=== PATIENT | male | born 1980 ===

== ENCOUNTER 2017-02-23 02:27 | Emergency (ER) | payer SELFPAY ==
[2017-02-23] MEDS ORDERED: Hydrocodone/Acetaminophen 5 mg /300 mg Tab PO STA (03:11)
[2017-02-23] MEDS ORDERED: Acetaminophen/Codeine elixir 120-12mg/5ml PO STA (03:13)
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
[2017-02-23] MEDS ORDERED: Acetaminophen-Codeine 300/30 mg Tab PO STA (03:42)
[2017-02-23] MEDS ORDERED: Acetaminophen-Codeine 300/30 mg Tab PO ONE (03:47)
--- NOTE | 2017-02-23 03:53 | CT ---
EXAM: CT Head Without Intravenous Contrast CLINICAL HISTORY: 36 years old, male; Pain and injury or trauma; Fall; Initial encounter; Puncture wound and swelling (edema); Without residual foreign body; Eye and face and forehead; Bilateral; Headache; Additional info: R/O bleed TECHNIQUE: Axial computed tomography images of the head/brain without intravenous contrast. All CT scans at this facility use one or more dose reduction techniques, viz.: automated exposure control; ma/kV adjustment per patient size (including targeted exams where dose is matched to indication; i.e. head); or iterative reconstruction technique. Coronal and sagittal reformatted images were created and reviewed. COMPARISON: No relevant prior studies available. FINDINGS: Brain: No intracranial hemorrhage. No mass. No edema. Ventricles: No hydrocephalus. Bones/joints: No calvarial fracture. Mastoid air cells: No mastoid effusion. IMPRESSION: 1. No intracranial hemorrhage. 2. See facial bone CT report for additional details.
--- NOTE | 2017-02-23 03:57 | CT ---
EXAM: CT Cervical Spine Without Intravenous Contrast CLINICAL HISTORY: 36 years old, male; Pain and injury or trauma; Fall; Initial encounter; Swelling; Neck pain TECHNIQUE: Axial computed tomography images of the cervical spine without intravenous contrast. All CT scans at this facility use one or more dose reduction techniques, viz.: automated exposure control; ma/kV adjustment per patient size (including targeted exams where dose is matched to indication; i.e. head); or iterative reconstruction technique. Coronal and sagittal reformatted images were created and reviewed. COMPARISON: No relevant prior studies available. FINDINGS: Vertebrae: No acute fracture. Early facet osteoarthrosis. Discs/spinal canal/neural foramina: Early mild degenerative degenerative disc disease throughout cervical spine. No significant spinal stenosis. Soft tissues: Unremarkable. Lung apices: Mild mosaic pattern of lung parenchyma, nonspecific. IMPRESSION: 1. No fracture. 2. Incidental/non-acute findings are described above.
--- NOTE | 2017-02-23 04:00 | CT ---
EXAM: CT Maxillofacial Without Intravenous Contrast CLINICAL HISTORY: 36 years old, male; Pain and injury or trauma; Fall; Initial encounter; Swelling; Cheek bone and eyelid and forehead; Bilateral; Uppeupper rightr right; Face pain and jaw pain and nose pain TECHNIQUE: Axial computed tomography images of the face without intravenous contrast. All CT scans at this facility use one or more dose reduction techniques, viz.: automated exposure control; ma/kV adjustment per patient size (including targeted exams where dose is matched to indication; i.e. head); or iterative reconstruction technique. Coronal and sagittal reformatted images were created and reviewed. COMPARISON: No relevant prior studies available. FINDINGS: Bones/joints: No acute fracture. Soft tissues: Facial soft tissue swelling, LEFT greater than RIGHT. Air along LEFT facial soft tissue swelling. Orbits: Unremarkable as visualized. Sinuses: Scattered minimal to mild mucosal thickening. No air-fluid levels. IMPRESSION: 1. No fracture. 2. Incidental/non-acute findings are described above.
[2017-02-23 04:25] VITALS: BP 124/83; PULSE 94; RESP 20; TEMP 98.4
[2017-02-23 04:54] VITALS: O2SAT 97
== END 2017-02-23 04:25 | disposition home or self-care (01) ==
LOC: C.ER 02:27
DX: S00.83XA Contusion of other part of head, initial encounter (principal); Y04.0XXA Assault by unarmed brawl or fight, initial encounter

== ENCOUNTER 2017-02-25 12:18 | Emergency (ER) | payer SELFPAY ==
[2017-02-25 12:24] VITALS: TEMP 97.9; O2SAT 98
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
[2017-02-25 12:59] VITALS: BP 120/70; PULSE 72; RESP 20
== END 2017-02-25 13:06 | disposition home or self-care (01) ==
LOC: C.ER 12:18
DX: S00.53 Contusion of lip and oral cavity (principal); Y09 Assault by unspecified means

== ENCOUNTER 2017-04-11 14:02 | Emergency (ER) | payer OTHER, SELFPAY ==
[2017-04-11 14:06] VITALS: BMI 35.5
[2017-04-11] MEDS ORDERED: Lidocaine 2% Inj (20ml) INFIL ONE (14:19)
[2017-04-11] MEDS ORDERED: Tetanus/Diphtheria Toxoids 0.5 ml Syringe IM ONE ×3 (14:19→14:52)
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
[2017-04-11] MEDS ORDERED: Lidocaine 2% Inj (20ml) ONE (14:34)
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
[2017-04-11] MEDS ORDERED: Bacitracin 500 Units/gm Oint Foilpak UD ONE (15:18)
[2017-04-11] MEDS ORDERED: Amoxicillin-Clav 875-125 mg Tab PO STA (15:22)
[2017-04-11] MEDS ORDERED: Amoxicillin-Clav 875-125 mg Tab PO ONE (16:03)
[2017-04-11 16:10] VITALS: BP 133/89; PULSE 98; RESP 20; TEMP 98.2
[2017-04-11 17:17] VITALS: O2SAT 99
== END 2017-04-11 16:08 | disposition home or self-care (01) ==
LOC: C.ER 14:02
DX: S51.812A Laceration without foreign body of left forearm, initial encounter (principal); W45.8XXA Other foreign body or object entering through skin, initial encounter; Y99.0 Civilian activity done for income or pay; Z23 Encounter for immunization